=== PATIENT | female | born 2000 | race Caucasian/White ===

== ENCOUNTER 2025-07-15 04:05 | Emergency (ER) | payer OTHER ==
[~2025-07-15] VITALS: Ht 157.5 cm; Wt 60.0 kg
[2025-07-15 04:10] VITALS: O2SAT 99
[2025-07-15 05:04] LABS: CLARITY URINE CLEAR (CLEAR); COLOR URINE YELLOW (YELLOW); GLUCOSE URINE NEGATIVE (NEGATIVE); KETONES URINE TRACE (NEGATIVE); LEUKOCYTE ESTERASE URINE NEGATIVE (NEGATIVE); NITRITE URINE NEGATIVE (NEGATIVE); OCCULT BLOOD URINE NEGATIVE (NEGATIVE); PH URINE 5.5 (4.5-8.0); PROTEIN URINE NEGATIVE (NEGATIVE); SPECIFIC GRAVITY URINE 1.022 (1.005-1.030); UROBILINOGEN URINE 0.2 E.U./dL (0.2-1.0)
[2025-07-15] MEDS: KETOROLAC 15MG/ML VIAL IM ONE (05:59)
[2025-07-15 06:07] LABS: BASOPHILS % 0.6 % (0.0-2.0); EOSINOPHILS % 0.8 % (0.0-5.0); HEMATOCRIT. 42.6 % (36.0-48.0); HEMOGLOBIN. 14.0 g/dL (12.0-16.0); LYMPHOCYTES % 29.9 % (20.0-50.0); MEAN PLATELET VOLUME 8.3 fl (7.4-10.4); MONOCYTES % 8.0 % (2.0-8.0); NEUTROPHILS % 60.7 % (40.0-76.0); PLATELET 300 x1000/uL (130-400); RED BLOOD CELL COUNT 4.81 mill/uL (4.2-5.4); RED CELL DISTRIBUTION WIDTH 13.6 % (11.6-14.6)
[2025-07-15 06:43] LABS: CREATININE 0.8 mg/dL (0.6-1.0)
[2025-07-15 06:44] LABS: UREA NITROGEN BLOOD 9 mg/dL (9-23)
[2025-07-15 06:46] LABS: ASPARTATE AMINOTRANSFERASE 22 IU/L (<34); BILIRUBIN DIRECT 0.2 mg/dL (<=3.0); BILIRUBIN TOTAL 0.6 mg/dL (0.1-1.0); PROTEIN TOTAL 7.2 g/dL (6.0-8.3)
[2025-07-15] MEDS ORDERED: IBUP-2028 PO (06:49)
[2025-07-15 06:52] VITALS: BP 106/61; PULSE 67; RESP 14; TEMP 36.7; O2SAT 100
== END 2025-07-15 06:55 | disposition home or self-care (01) ==
LOC: ER 04:05
DX: R10.20 Pelvic and perineal pain unspecified side (principal); N83.11 Corpus luteum cyst of right ovary; Z79.1 Long term (current) use of non-steroidal anti-inflammatories (NSAID)
CPT/HCPCS: 99285; 76830; 76856; 80076; 80048; 81003; 81025; 85025; 36415; 96372; J1885